=== PATIENT | male | born 1965 | race African-American/Black ===

== ENCOUNTER 2017-07-18 09:19 | Day surgery (SDC) | payer OTHER ==
[2017-07-11 13:02] LABS: ABSOLUTE LYMPHOCYTES (AUTO) 1.8 10^3/uL (0.5-4.7); ABSOLUTE MONOCYTES (AUTO) 0.4 10^3/uL (0.1-1.4); ABSOLUTE NEUT (AUTO) 2.6 10^3/uL (1.7-8.2); BASOPHILS % (AUTO) 0.4 % (0-2); EOSINOPHILS % (AUTO) 0.7 % (0-6); HEMOGLOBIN 14.2 g/dL (13.5-17.0); LYMPHOCYTES % (AUTO) 36.8 % (13-45); MEAN CORPUSCULAR HEMOGLOBIN 26.6 pg (27.0-33.4); MEAN CORPUSCULAR HGB CONC 33.1 g/dL (32.0-36.0); MEAN CORPUSCULAR VOLUME 80 fl (80-97); MONOCYTES % (AUTO) 8.3 % (3-13); PLATELET COUNT 337 10^3/uL (150-450); RED BLOOD COUNT 5.35 10^6/uL (4.35-5.55); RED CELL DISTRIBUTION WIDTH 15.9 % (11.5-14.0); SEGMENTED NEUTROPHILS % (AUTO) 53.8 % (42-78); TOTAL CELLS COUNTED % (AUTO) 100 %; WHITE BLOOD COUNT 4.9 10^3/uL (4.0-10.5)
[2017-07-11 13:04] LABS: APPEARANCE,URINE CLEAR; BILIRUBIN,URINE NEGATIVE (NEGATIVE); COLOR,URINE YELLOW; GLUCOSE, URINE NEGATIVE (NEGATIVE); KETONES,URINE NEGATIVE (NEGATIVE); LEUKOCYTE ESTERASE,URINE TRACE (NEGATIVE); NITRITE,URINE NEGATIVE (NEGATIVE); PROTEIN,URINE NEGATIVE (NEGATIVE); URINE SPECIFIC GRAVITY 1.013; UROBILINOGEN,URINE NEGATIVE mg/dL (<2.0)
--- NOTE | 2017-07-11 13:14 | RADIOLOGY REPORT (SQ) ---
EXAM DESCRIPTION: CHEST PA/LATERAL COMPLETED DATE/TIME: 07/11/2017 12:39 pm REASON FOR STUDY: PRE OP COMPARISON: 07/12/2012 EXAM PARAMETERS: NUMBER OF VIEWS: two views TECHNIQUE: Digital Frontal and Lateral radiographic views of the chest acquired. RADIATION DOSE: NA LIMITATIONS: none FINDINGS: LUNGS AND PLEURA: No opacities, masses or pneumothorax. No pleural effusion. MEDIASTINUM AND HILAR STRUCTURES: No masses or contour abnormalities. HEART AND VASCULAR STRUCTURES: Heart normal size. No evidence for failure. BONES: No acute findings. HARDWARE: None in the chest. OTHER: No other significant finding. IMPRESSION: NO SIGNIFICANT RADIOGRAPHIC FINDING IN THE CHEST. TECHNICAL DOCUMENTATION: JOB ID: [id number] [employer]- All Rights Reserved Reading location - IP/workstation name: [email or web address]
[2017-07-11 13:31] LABS: ANION GAP 10 (5-19); BLOOD UREA NITROGEN 15 mg/dL (7-20); CARBON DIOXIDE 32 mmol/L (22-30); CHLORIDE 101 mmol/L (98-107); GLUCOSE 90 mg/dL (75-110); SODIUM 142.5 mmol/L (137-145)
--- NOTE | 2017-07-11 22:44 | EKG REPORT ---
SEVERITY:- ABNORMAL ECG - SINUS RHYTHM PROBABLE LEFT ATRIAL ABNORMALITY NONSPECIFIC INTRAVENTRICULAR CONDUCTION DELAY LEFT VENTRICULAR HYPERTROPHY : Confirmed by: Tj Junior 11-Jul-2017 22:44:33
[~2017-07-18 09:19] MED LIST: CLINDAMYCIN 600 MG/D5W RTU 600 MG/50 ML RTUPB IV PRN; LACTATED RINGERS 1000 ML IV PRN; LIDOCAINE 0.5% INJ-PF (5 MG/ML) 50 ML SDV SUBCUT PRN
[2017-07-18] MEDS ORDERED: ONDANSETRON HCL INJ/PF 4 MG/2 ML SDV ONE (11:12)
[2017-07-18] MEDS ORDERED: FENTANYL CITRATE INJ/PF 100 MCG/2 ML AMPUL ONE ×2 (11:12)
[2017-07-18] MEDS ORDERED: ACETAMINOPHEN 100 ML IV ONE (11:12)
[2017-07-18] MEDS ORDERED: PROPOFOL INJ 200 MG/20 ML VIAL IV ONE (11:12)
[2017-07-18] MEDS ORDERED: MIDAZOLAM 2 MG/2 ML INJ ONE (11:12)
[2017-07-18] MEDS ORDERED: BUPIVACAINE HCL 0.5 % INJ/PF 30 ML SDV ONE (11:13)
[2017-07-18] MEDS ORDERED: FENTANYL CITRATE INJ/PF 100 MCG/2 ML AMPUL IV PRN ×3 (11:48)
[2017-07-18] MEDS ORDERED: MORPHINE SULFATE 10 MG/ML INJ IV PRN ×2 (11:48→12:47)
[2017-07-18] MEDS ORDERED: PROMETHAZINE HCL INJ 25 MG/1 ML VIAL IV PRN (11:48)
[2017-07-18] MEDS ORDERED: MEPERIDINE HCL/PF INJ 25 MG/1 ML DISP.SYRIN IV PRN (11:48)
[2017-07-18] MEDS ORDERED: DIPHENHYDRAMINE HCL 50 MG/ML VIAL IV PRN (11:48)
[2017-07-18] MEDS ORDERED: OXYCODONE-ACETAMINOPHEN 5-325 MG TABLET PO PRN (12:47)
[2017-07-18] MEDS ORDERED: RINGERS SOLUTION,LACTATED 1,000 ML IV PRN (12:47)
[2017-07-18] MEDS ORDERED: ONDANSETRON HCL INJ/PF 4 MG/2 ML SDV IV PRN (12:47)
--- NOTE | 2017-07-18 12:47 | Operative Report ---
Operative Report DATE OF SURGERY: 07/18/17 PREOPERATIVE DIAGNOSIS: Left wrist central TFCC tear POSTOPERATIVE DIAGNOSIS: Same OPERATION: Left wrist arthroscopy with TFCC debridement grade 1A SURGEON: FIDEL LEVIN 1ST [employer] SUPERVISOR: PAM KRUSE ANESTHESIA: Local COMPLICATIONS: None ESTIMATED BLOOD LOSS: Minimal PROCEDURE: Indication for above procedure: 52-year-old male with history of left wrist pain. Patient had MR demonstrating TFCC tear. We attempted conservative management including operative versus nonoperative intervention including injections and immobilization without improvement. We discussed treatment options decision was made to proceed with operative treatment. Procedure In Detail: Patient was seen and evaluated in the preoperative holding area. The LEFT upper extremity was initialized and marked. Patient received 2g of Ancef IV for bacterial prophylaxis. Patient was taken back to the operative room where transferred to the operative table and placed under general anesthesia. Once they were adequately anesthetized a nonsterile tourniquet was placed on the upper extremity. A surgical team debriefing was performed ensuring all instrumentation was available, the surgical procedure was discussed with possible concerns reviewed. The upper extremity was prepped with chlorhexidine and alcohol and draped in a sterile fashion. Patient was placed in the [facility] wrist arthroscopy tower with 15 pounds of traction. A timeout was done identifying correct patient, procedure and extremity everyone in attendance agree with this and verbalized no concerns. The extremity was exsanguinated the tourniquet was inflated to 250 mmHg. A 3-4 portal was established arthroscope was introduced into the radiocarpal joint. Diagnostic arthroscopy was then performed demonstrating no evidence of degenerative changes on the radiocarpal joint. The RSC, short and long RL ligaments were identified and intact without disruption. Via triangulation a 6U and a 6R portal were established. There was evidence of a central TFCC perforated tear no evidence of peripheral involvement. There is mild synovitis along the prestyloid recess. There was mild degeneration of the distal ulna. No evidence of degeneration of the lunate to indicate impaction. The TFCC tear was then debrided to a stable base and chondroplasty performed along the distal ulna. A midcarpal radial portal was established and a midcarpal ulnar portal established via triangulation. Diagnostic arthroscopy of the midcarpal joint demonstrated no evidence of lunotriquetral or scapholunate malalignment. There was mild chondromalacia along the STT joint which was successfully debrided. Probing of the lunotriquetral and scapholunate intervals demonstrate no evidence of instability. Skin incisions were then closed with interrupted 3-0 nylon suture. 20 cc of 0.5 % Marcaine with epinephrine was injected for postoperative pain control. Patient was placed in a volar resting splint in the neutral position. Tourniquet was deflated. Sponge counts, instrument counts, needle counts counts were correct. Patient was then awoken from anesthesia. Transferred from the operating room table to the operating room stretcher. There was no intraoperative complications patient tolerated procedure well stable to PACU. Postoperative plan: Patient will follow-up the office in 2 weeks at which point we will transition to a removable wrist brace to begin gentle range of motion as tolerated. Patient will avoid any heavy lifting >10lbs 6 weeks postoperatively.
--- NOTE | 2017-07-18 12:47 | Discharge Summary ---
Discharge Summary (SDC) - Discharge Final Diagnosis: Left triangular fibrocartilage complex tear Date of Surgery: 07/18/17 Discharge Date: 07/18/17 Condition: Good Treatment or Instructions: Schedule Follow Up w/ Dr. Roger Parker @ [facility] for Surgery to be seen in 10-14 days or as scheduled [place]: [place]: [place]: Ice and elevate Keep splint clean/dry/intact. If your fingers become numb please unwrap the Min wrap but leave the splint in place, if the sensation does not return within 30 minutes please return to the emergency department. May begin finger range of motion attempting to make full fist. Please use ibuprofen (Motrin or Advil) 600-800 mg every 8 hours as needed for pain or fever DO NOT TAKE w/ TORADOL may use once TORADOL complete. You may also use acetaminophen (Tylenol) 1000 mg every 4-6 hours as needed for pain or fever. Please be aware that many medications contain acetaminophen, do not exceed a total of 1000 mg of acetaminophen every 6 hours. If ibuprofen and acetaminophen are not sufficient for your pain you may take the Percocet/Almo. Please be aware that the Percocet/Almo does contain Tylenol. Stool softener of choice when on pain medication. Prescriptions: Oxycodone HCl/Acetaminophen [Endocet 5-325 Tablet] 1 each PO Q6 #30 tablet Referrals: SOWMYA WESTON MD [Primary Care Provider] - Discharge Diet: As Tolerated, Regular Respiratory Treatments at Home: Deep Breathing/Coughing Discharge Activity: No Lifting Over 10 Pounds, No Lifting/Push/Pulling Home Care Assistance: None Needed Report the Following to Your Physician Immediately: Shortness of Breath, Fever over 101 Degrees, Unusual Bleeding, Redness, Drainage-Yellow
[2017-07-18 15:00] VITALS: BP 146/108
== END 2017-07-18 14:30 | disposition home or self-care (01) ==
LOC: OROUT 09:19
PROVIDERS: ATTEND Orthopaedic Surgery
PROC: 0RBP4ZZ Excision of Left Wrist Joint, Percutaneous Endoscopic Approach (ICD-10-PCS; principal; 2017-07-18 11:15)
DX: S63.592D Other specified sprain of left wrist, subsequent encounter (principal); X58.XXXD Exposure to other specified factors, subsequent encounter; M65.832 Other synovitis and tenosynovitis, left forearm; M25.532 Pain in left wrist; I10 Essential (primary) hypertension; G43.909 Migraine, unspecified, not intractable, without status migrainosus
CPT/HCPCS: 93005; 36415 ×2; 84132; 85025; 80048; 81001; 71046; 93010; 29846; J2250; J3490; J3010; J2405; J2704; J0131; 1830

== ENCOUNTER 2018-08-28 19:11 | Emergency (ER) | payer OTHER ==
[2018-08-28 23:13] LABS: APPEARANCE,URINE CLOUDY; BILIRUBIN,URINE NEGATIVE (NEGATIVE); COLOR,URINE YELLOW; GLUCOSE, URINE NEGATIVE (NEGATIVE); KETONES,URINE NEGATIVE (NEGATIVE); LEUKOCYTE ESTERASE,URINE LARGE (NEGATIVE); NITRITE,URINE NEGATIVE (NEGATIVE); PROTEIN,URINE NEGATIVE (NEGATIVE); URINE SPECIFIC GRAVITY 1.028
[2018-08-28 23:15] LABS: ABSOLUTE EOSINOPHILS # (AUTO) 0.1 10^3/uL (0.0-0.6); ABSOLUTE LYMPHOCYTES (AUTO) 2.2 10^3/uL (0.5-4.7); ABSOLUTE MONOCYTES (AUTO) 0.4 10^3/uL (0.1-1.4); ABSOLUTE NEUT (AUTO) 2.6 10^3/uL (1.7-8.2); BASOPHILS % (AUTO) 0.3 % (0-2); HEMATOCRIT 41.5 % (37.9-51.0); HEMOGLOBIN 13.6 g/dL (13.5-17.0); LYMPHOCYTES % (AUTO) 41.5 % (13-45); MEAN CORPUSCULAR HEMOGLOBIN 26.8 pg (27.0-33.4); MEAN CORPUSCULAR HGB CONC 32.9 g/dL (32.0-36.0); MEAN CORPUSCULAR VOLUME 82 fl (80-97); MONOCYTES % (AUTO) 7.4 % (3-13); PLATELET COUNT 311 10^3/uL (150-450); RED BLOOD COUNT 5.09 10^6/uL (4.35-5.55); RED CELL DISTRIBUTION WIDTH 15.8 % (11.5-14.0); SEGMENTED NEUTROPHILS % (AUTO) 49.8 % (42-78); TOTAL CELLS COUNTED % (AUTO) 100 %; WHITE BLOOD COUNT 5.2 10^3/uL (4.0-10.5)
[2018-08-28 23:29] LABS: URINE AMPHETAMINES SCREEN NEGATIVE; URINE BARBITURATES SCREEN NEGATIVE; URINE BENZODIAZEPINES SCREEN NEGATIVE; URINE COCAINE SCREEN NEGATIVE; URINE MARIJUANA (THC) SCREEN NEGATIVE; URINE METHADONE SCREEN NEGATIVE
--- NOTE | 2018-08-28 23:30 | RADIOLOGY REPORT (SQ) ---
EXAM DESCRIPTION: CT LUMBAR SPINE WITHOUT IV CONTRAST COMPLETED DATE/TME: 08/28/2018 22:27 CLINICAL HISTORY: 53 years, Male, loss sensation left lateral leg SINCE MONDAY COMPARISON: None. TECHNIQUE: Noncontrast CT images of the lumbar spine were obtained. Coronal and sagittal reformations were created. Images stored on PACS. All CT scanners at this facility use dose modulation, iterative reconstruction, and/or weight based dosing when appropriate to reduce radiation dose to as low as reasonably achievable (ALARA). [facility]: Dose Right [facility]: CareDose [facility]: Dose Right [facility]: Teradose 4D [facility]: [facility] LIMITATIONS: None. FINDINGS: Limited evaluation of the abdominal structures reveals mild circumferential wall thickening involving the rectum, most pronounced on image 115 of series 4. Lumbar vertebral body heights and alignments are maintained. No acute fracture or malalignment is appreciated. Intervertebral disc spaces are overall well-maintained. Specifically, there are no disc bulge is evident throughout the lumbar spine. Likewise, there is no evidence of significant neural foraminal stenosis at any level. A sclerotic focus is evident about the right sacral ala, likely indicating a benign bone island. IMPRESSION: No acute osseous anomaly or significant degenerative change throughout the lumbar spine. Segment of circumferential wall thickening located about the rectum, potentially indicating peristalsis. However, correlation with direct visualization is suggested, if not already recently performed, to exclude malignancy. TECHNICAL DOCUMENTATION: Quality ID # [id number]: Final reports with documentation of one or more dose reduction techniques (e.g., Automated exposure control, adjustment of the mA and/or kV according to patient size, use of iterative reconstruction technique) copyright 2011 [employer] All Rights Reserved
[2018-08-28 23:34] LABS: ALANINE AMINOTRANSFERASE 34 U/L (21-72); ALBUMIN 4.3 g/dL (3.5-5.0); ALKALINE PHOSPHATASE 118 U/L (38-126); ANION GAP 10 (5-19); ASPARTATE AMINO TRANSFERASE 25 U/L (17-59); BILIRUBIN,DIRECT 0.3 mg/dL (0.0-0.4); BILIRUBIN,TOTAL 0.4 mg/dL (0.2-1.3); BLOOD UREA NITROGEN 12 mg/dL (7-20); CALCIUM 9.8 mg/dL (8.4-10.2); CARBON DIOXIDE 31 mmol/L (22-30); CHLORIDE 102 mmol/L (98-107); GLUCOSE 104 mg/dL (75-110); SODIUM 142.6 mmol/L (137-145); TOTAL PROTEIN 7.4 g/dL (6.3-8.2)
[2018-08-28 23:36] LABS: C-REACTIVE PROTEIN < 5.0 mg/L (<10.0)
[2018-08-28 23:37] LABS: URINE PHENCYCLIDINE SCREEN NEGATIVE
[2018-08-28 23:48] LABS: ERYTHROCYTE SEDIMENTATION RATE 14 mm/hr (0-20)
--- NOTE | 2018-08-29 01:37 | ER Document Report ---
ED Extremity Problem, Lower - General Mode of Arrival: Ambulatory Information source: Patient TRAVEL OUTSIDE OF THE [place] IN LAST 30 DAYS: No <KALYANI ALEXANDER - Last Filed: 08/29/18 01:39> <JOSEPH SHAY - Last Filed: 08/29/18 03:26> - General Chief Complaint: Foot Pain Stated Complaint: LEFT FOOT NUMB Time Seen by Provider: 08/28/18 22:07 [facility] [[facility] - Follow up as needed Notes: Patient is a 53-year-old male comes emergency room complaining of left leg numbness and left foot numbness. Patient comes in stating that his numbness and tingling on the left side of his leg on his left leg started on Monday and has progressively gotten to the point where he has numbness and no feeling in his leg laterally and tingling and numbness on the bottom of his left foot. Patient states he can ambulate without a problem he just has no feeling in the foot or leg. He denies any history of diabetes he denies any injuries, he denies any back pain either acute or remotely. The only abnormality patient has is that he was seeing a customs import specialist for a disability knee injury and that was also in the left knee. He has had no surgery on the left knee at all but that is what he is attempting to try to get changed. Orthopedic he was seen is no longer in town he has to start again. Patient's complaint has nothing to do with his left knee however it has evolved into the fact that he has lost his sensation of feeling from the lateral mid thigh down past the knee and into the ankle and top of the foot. This is all on the lateral side. Patient is feeling on the medial aspect of his knee and leg and he has total movement without a problem. He has not had any loss of urine or stool he said no nausea vomiting or diarrhea he is got no fevers or cough. (KALYANI ALEXANDER) - Related Data Allergies/Adverse Reactions: Fish Containing Products [Fish Product Derivatives] Allergy (Verified 08/28/18 19:12) Anaphylaxis Penicillins Allergy (Verified 08/28/18 19:12) Anaphylaxis Liver Allergy (Uncoded 08/28/18 19:12) Anaphylaxis Seasonal Allergies Adverse Reaction (Uncoded 08/28/18 19:12) Past Medical History - General Information source: Patient - Social History Smoking Status: Never Smoker Cigarette use (# per day): No Chew tobacco use (# tins/day): No Smoking Education Provided: No Frequency of alcohol use: Rare Drug Abuse: None Lives with: Family Family History: Reviewed & Not Pertinent Patient has suicidal ideation: No Patient has homicidal ideation: No - Past Medical History Cardiac Medical History: Reports: Hx Hypertension Denies: Hx Coronary Artery Disease, Hx Heart Attack Pulmonary Medical History: Denies: Hx Asthma, Hx Bronchitis, Hx COPD, Hx Pneumonia Neurological Medical History: Reports: Hx Migraine. Denies: Hx Cerebrovascular Accident, Hx Seizures Renal/ Medical History: Denies: Hx Peritoneal Dialysis Musculoskeletal Medical History: Reports Hx Arthritis - Possible arthritis in left knee and left wrist Past Surgical History: Reports: Hx Orthopedic Surgery - Left shoulder, left wrist bilateral shins, Hx Tonsillectomy - Immunizations Hx Diphtheria, Pertussis, Tetanus Vaccination: - Unsure Hx Pneumococcal Vaccination: 01/08/17 <KALYANI ALEXANDER - Last Filed: 08/29/18 01:39> Review of Systems - Review of Systems Constitutional: No symptoms reported EENT: No symptoms reported Cardiovascular: No symptoms reported Respiratory: No symptoms reported Gastrointestinal: No symptoms reported Genitourinary: No symptoms reported Male Genitourinary: No symptoms reported Musculoskeletal: See HPI Skin: No symptoms reported Hematologic/Lymphatic: No symptoms reported Neurological/Psychological: See HPI, Numbness, Tingling, Other - Loss of sensat ion -: Yes All other systems reviewed and negative <KALYANI ALEXANDER - Last Filed: 08/29/18 01:39> Physical Exam - Vital signs Interpretation: Hypertensive <KALYANI ALEXANDER - Last Filed: 08/29/18 01:39> - Vital signs Vitals: Temp Pulse Resp BP Pulse Ox 98.2 F 80 16 153/99 H 98 08/28/18 19:15 08/28/18 19:15 08/28/18 19:15 08/28/18 19:15 08/28/18 19:15 - Notes Notes: PHYSICAL EXAMINATION: GENERAL: Well-appearing, well-nourished and in no acute distress. HEAD: Atraumatic, normocephalic. EYES: Pupils equal round and reactive to light, extraocular movements intact, sclera anicteric, conjunctiva are normal. ENT: Nares patent, oropharynx clear without exudates. Moist mucous membranes. NECK: Normal range of motion, supple without lymphadenopathy LUNGS: Breath sounds clear to auscultation bilaterally and equal. No wheezes rales or rhonchi. HEART: Regular rate and rhythm without murmurs ABDOMEN: Soft, nontender, nondistended abdomen. No guarding, no rebound. No masses appreciated. Musculoskeletal: Normal range of motion, no pitting or edema. No cyanosis. Patient has normal range of motion of his back. Palpation of the lumbar spine also has no abnormalities. Straight leg raises are normal bilaterally. As stated the DTRs are also normal. There is no sign currently of saddle paresthesia with patient having sensation and feeling on the inside of his legs outside of his legs and posterior legs upper. NEUROLOGICAL: Normal speech, normal gait. Normal motor exams. Patient does display a deficit in his sensory perception on his left leg. In the supine position patient having his eyes closed I used a two-point discrimination method of testing patient's numbness and tingling and loss of sensation. Patient literally has no sensation on the left lateral leg from the ankle up to mid thigh only laterally. Mid thigh straight through the middle of the knee and to the top of the foot has sensation and good two-point discrimination. Anterior two-point discrimination is also normal. Patient has good dorsiflexion with and against resistance. Also has good ankle rotation as well as good knee flexion and extension. Vascular exam is all normal. There is no discrepancy in skin temperature from right to left lower extremities. Cap refill in the nailbeds of the toes are equal bilaterally. Patient has good DTRs bilaterally. But the main differential is patient with a two-point discrimination or single-point di scrimination on the left lateral leg even with heavy and firm pressure he has no feeling. This indented the skin down approximately 1/2-3/4 of a centimeter into the skin before stopping and having no feeling. He does have sensation on the bottom of the foot but has a negative Babinski. Findings on the two-point discrimination goes along with L4 L5-S1 dermatome line. PSYCH: Normal mood, normal affect. SKIN: Warm, Dry, normal turgor, no rashes or lesions noted. (KALYANI ALEXANDER) Course - Laboratory Result Diagrams: 08/28/18 22:47 08/28/18 22:47 <KALYANI ALEXANDER - Last Filed: 08/29/18 01:39> - Laboratory Result Diagrams: 08/28/18 22:47 08/28/18 22:47 <JOSEPH SHAY - Last Filed: 08/29/18 03:26> - Re-evaluation Re-evalutation: 08/29/18 01:[address] Graves will come over and examined patient with me after my initial findings. She also came in and examined him requesting him again both times answers were completely normal and the same to me as to her. No sign of fever no cough no injuries no back pain no loss of urine or stool sensation loss is all in the lateral side of the leg only since Monday. Denies any traumatic events denies any coughing sneezing lifting moving pulling. The only abnormality patient has is his left knee which is chronic in nature. Patient's labs came back normal with the exception of findings on the CT which have gone over with patient in the emergency room showed the only abnormality of having segment of circumferential wall thickening located about the rectum concern was for this to be a malignancy in nature. He also had an abnormality on his labs of having a large amount of leukocytes with a high white count of 114. So we will treated for urinary tract infection/prostatitis type of presentation but this has nothing to do with his left lower extremity numbness and tingling and loss of sensation. But I stated Dr. Shay feels as I do it that there is nothing that is going to be solved tonight or is going to be detrimental to license is been going on since Monday and [facility] I am giving him all of his labs and blood work to take with him for a [facility] and possibly a referral to neurology for if nothing else nerve conduction studies. Patient is in understanding and agreement with this plan. I am going to place him on a steroid taper, gabapentin at night for neuropathic pain and doxycycline for UTI. 08/29/18 01:39 (KALYANI ALEXANDER) 08/29/18 03:25 Patient was seen and examined as requested by [facility]. Mr. Knight is a 53-year-old male that presents with numbness, paresthesias of the left lower extremity. Patient has no back pain, lower extremity weakness, saddle anesthesia, history of fever, IV drug use. Besides decreased sensation patient has a normal neurologic exam. CBC, ESR are within normal limits. CT of the lumbar spine showed no evidence of discitis, epidural abscess. PHYSICAL EXAMINATION: GENERAL: Well-appearing, well-nourished and in no acute distress. HEAD: Atraumatic, normocephalic. EYES: Pupils equal round extraocular movements intact, conjunctiva are normal. ENT: Nares patent NECK: Normal range of motion LUNGS: No respiratory distress Musculoskeletal: Normal range of motion NEUROLOGICAL: Normal speech, normal gait. PSYCH: Normal mood, normal affect. SKIN: Warm, Dry, normal turgor, no rashes or lesions noted. Incidental findings of rectal wall thickening were discussed with the patient. Patient does have follow-up with the [facility] and he was provided copies of his imaging. (JOSEPH SHAY) - Vital Signs Vital signs: Temp Pulse Resp BP Pulse Ox 98.5 F 67 18 146/92 H 98 08/29/18 01:57 08/29/18 01:57 08/29/18 01:57 08/29/18 01:57 08/29/18 01:57 - Laboratory Laboratory results interpreted by me: 08/28/18 08/28/18 08/28/18 22:47 22:47 22:47 M[facility] 26.8 L RDW 15.8 H Carbon Dioxide 31 H Urine Urobilinogen 2.0 H Ur Leukocyte Esterase LARGE H Discharge <KALYANI ALEXANDER T - Last Filed: 08/29/18 01:39> <JOSEPH SHAY - Last Filed: 08/29/18 03:26> - Discharge Clinical Impression: Neuropathy of left lower extremity, Rectal wall thickening Urinary tract infection Qualifiers: Urinary tract infection type: site unspecified Hematuria presence: without hematuria Qualified Code(s): N39.0 - Urinary tract infection, site not specified Condition: Stable Disposition: HOME, SELF-CARE Instructions: Neuropathy ([facility]), Urinary Tract Infection ([facility]) Additional Instructions: As we discussed you need to take all information I provided [facility] and be under doorstep on the open up. There is nothing we can find tonight that is detrimental to you or life-threatening or long-term consequences at this time. You probably need referral to neurologist and or at least to have a nerve conduction study done. None of this is in a emergency room type of a work-up. You could also be having referred pain from the knee which is causing nerve damage in the area which is also a possibility that your orthopedist can also take a look at as well. Medication I am putting you on she will help guide to give a broad coverage to the neuropathic pain as well as to inflammatory type processes. Should you have any worsening of your symptoms or have any difficulty time getting into see anyone else please return to ER for recheck. As stated your CTs has some concerning findings on there for possibility of a rectal malignancy and will probably need a colonoscopy to rule out. You mentioned to me that she had one done about a year or so ago and so you have a GI judy you can contact to have them follow-up with this. Prescriptions: RX: Gabapentin [Neurontin 300 mg Capsule] 300 mg PO QHS #30 cap RX: Doxycycline Hyclate 100 mg PO BID #14 capsule RX: Prednisone 10 mg PO ASDIR 6 Days #1 tab.ds.pk [facility]errals: [facility] [[facility]] - Follow up as needed
[2018-08-29 01:58] VITALS: BP 146/92
== END 2018-08-29 01:58 | disposition home or self-care (01) ==
LOC: ER 19:11
DX: G57.92 Unspecified mononeuropathy of left lower limb (principal); N39.0 Urinary tract infection, site not specified; K62.89 Other specified diseases of anus and rectum; I10 Essential (primary) hypertension; Z88.0 Allergy status to penicillin
CPT/HCPCS: 99284; 36415; 85025; 85652; 86140; 80053; 81001; 80307; 72131; L1830

== ENCOUNTER 2020-01-01 18:49 | Emergency (ER) | payer OTHER ==
[2020-01-01] MEDS ORDERED: ACETAMINOPHEN 325 MG TABLET PO ONE (20:03)
--- NOTE | 2020-01-01 20:03 | ER Document Report ---
HPI - HPI Patient complains to provider of: Ankle injury Time Seen by Provider: 01/01/20 19:56 Pain Level: 5 Notes: 55-year-old male to the emergency department with left foot pain after he twisted it while he was helping mom states he fell he then ground and felt his foot. Since then he has been having pain. States it really does not hurt. He thinks he has a little bit swollen. He denies any other injuries. - CONSTITUTIONAL Constitutional: DENIES: Fever, Chills - EENT EENT: DENIES: Sore Throat, Ear Pain - NEURO Neurology: DENIES: Headache, Weakness - CARDIOVASCULAR Cardiovascular: DENIES: Chest pain - RESPIRATORY Respiratory: DENIES: Trouble Breathing, Coughing - GASTROINTESTINAL Gastrointestinal: DENIES: Abdominal Pain, Nausea, Patient vomiting, Diarrhea - MUSCULOSKELETAL Musculoskeletal: REPORTS: Extremity pain Notes: See HPI - DERM Skin Color: Normal Skin Problems: None Past Medical History - General Information source: Patient - Social History Smoking Status: Never Smoker Frequency of alcohol use: None Drug Abuse: None Family History: Reviewed & Not Pertinent - Past Medical History Cardiac Medical History: Reports: Hx Hypertension Denies: Hx Coronary Artery Disease, Hx Heart Attack Pulmonary Medical History: Denies: Hx Asthma, Hx Bronchitis, Hx COPD, Hx Pneumonia Neurological Medical History: Reports: Hx Migraine. Denies: Hx Cerebrovascular Accident, Hx Seizures Renal/ Medical History: Denies: Hx Peritoneal Dialysis Musculoskeletal Medical History: Reports Hx Arthritis - Possible arthritis in left knee and left wrist Past Surgical History: Reports: Hx Orthopedic Surgery - Left shoulder, left wrist bilateral shins, Hx Tonsillectomy - Immunizations Hx Diphtheria, Pertussis, Tetanus Vaccination: - Unsure Hx Pneumococcal Vaccination: 01/08/17 Vertical Provider Document - CONSTITUTIONAL Agree With Documented VS: Yes General Appearance: WD/WN - INFECTION CONTROL TRAVEL OUTSIDE OF THE [place] IN LAST 30 DAYS: No - HEENT HEENT: Atraumatic, Normocephalic, PERRLA - NECK Neck: Normal Inspection, Supple - RESPIRATORY Respiratory: Breath Sounds Normal, No Respiratory Distress. negative: Rales, Rhonchi, Wheezing - CARDIOVASCULAR Cardiovascular: Regular Rate, Regular Rhythm, No Murmur - GI/ABDOMEN Gastrointestinal: Abdomen Soft, Abdomen Non-Tender - BACK Back: Normal Inspection - MUSCULOSKELETAL/EXTREMETIES Notes: There is tenderness to palpation over the hindfoot on both the medial and lateral aspect. There appears to be a little bit of edema around bilateral malleoli. There is no ecchymosis and there is no gross deformity. DP pulses are intact and equal. Patient can. He is nontender to palpation to the left knee. Full range of motion in dorsiflexion and plantar flexion against resistance - NEURO Level of Consciousness: Awake, Alert Motor/Sensory: No Motor Deficit, No Sensory Deficit - DERM Integumentary: Warm, Dry Course - Re-evaluation Re-evalutation: Impression: Sprain and ankle sprain. This patient in a Min wrap and gave crutches. Encouraged rest, ice compression, elevation. Have him follow-up with orthopedist. Patient agrees with plan. He declined pain medicine. He states he has pain medicine at home. - Vital Signs Vital signs: Temp Pulse Resp BP Pulse Ox 98.5 F 75 18 157/103 H 100 01/01/20 18:53 01/01/20 18:53 01/01/20 18:53 01/01/20 18:53 01/01/20 18:53 - Laboratory Laboratory results interpreted by me: Ankle X-Ray 01/01/20 20:02 IMPRESSION: No evidence of acute displaced fracture of the ankle. Foot X-Ray 01/01/20 20:02 IMPRESSION: No evidence of acute displaced fracture of the foot. - Diagnostic Test Radiology reviewed: Reports reviewed Discharge - Discharge Clinical Impression: Sprain of left foot Qualifiers: Encounter type: initial encounter Qualified Code(s): S93.602A - Unspecified sprain of left foot, initial encounter Left ankle sprain Qualifiers: Encounter type: initial encounter Involved ligament of ankle: unspecified ligament Qualified Code(s): S93.402A - Sprain of unspecified ligament of left ankle, initial encounter Condition: Stable Disposition: HOME, SELF-CARE Instructions: Min Wrap ([facility]), Ice & Elevation ([facility]) Additional Instructions: FOLLOW UP WITH THE ORTHOPEDIST WITHOUT FAIL. REST, ICE, ELEVATE THE FOOT AND ANKLE. MAY USE OVER THE COUNTER TYLENOL AND MOTRIN FOR PAIN CONTROL. RETURN IF WORSENING SYMPTOMS. Referrals: EPHRAIM BELL MD [ACTIVE STAFF] - Follow up in 3-5 days
--- NOTE | 2020-01-01 20:33 | RADIOLOGY REPORT (SQ) ---
CLINICAL INDICATION: fall, ankle and foot pain. . TECHNIQUE: 2 view(s) were obtained of the left ankle. COMPARISON: None. FINDINGS: No acute displaced fracture is identified of the ankle. Alignment appears anatomic. Joint spaces are within normal limits for age. Surrounding soft tissues are unremarkable. IMPRESSION: No evidence of acute displaced fracture of the ankle.
--- NOTE | 2020-01-01 20:34 | RADIOLOGY REPORT (SQ) ---
CLINICAL INDICATION: fall, ankle and foot pain. . TECHNIQUE: 3 view(s) were obtained of the left foot. COMPARISON: None. FINDINGS: No acute displaced fracture is identified of the foot. Alignment appears anatomic. Mild age-appropriate osteoarthritis. Soft tissue swelling. IMPRESSION: No evidence of acute displaced fracture of the foot.
[2020-01-01 21:13] VITALS: BP 153/103
== END 2020-01-01 21:16 | disposition home or self-care (01) ==
LOC: ER 18:49
DX: S93.602A Unspecified sprain of left foot, initial encounter (principal); S93.402A Sprain of unspecified ligament of left ankle, initial encounter; X50.0XXA Overexertion from strenuous movement or load, initial encounter; I10 Essential (primary) hypertension
CPT/HCPCS: 99283